=== PATIENT | male | born 1975 | race Caucasian/White ===

== ENCOUNTER 2020-03-30 06:06 | Emergency (ER) | payer SELFPAY ==
[2020-03-30 06:57] VITALS: BMI 22.7
[2020-03-30] MEDS ORDERED: ACETAMINOPHEN 325 MG TABLET (FP) PO ONE (07:57)
[2020-03-30 08:12] LABS: BASO % 0.5 % (0-2.0); EOS % 2.4 % (0-4.5); HEMATOCRIT 39.6 % (35.4-49); HEMOGLOBIN 13.8 GM/dL (11.7-16.9); LYMPH % 45.1 % (8-40); MCHC 34.8 g/dl (32.0-35.9); MEAN CELL VOLUME 94.9 fl (80-96); MEAN PLT VOLUME 7.6 fl (7.5-11.1); MONO % 9.4 % (3.8-10.2); NEUT % 42.6 % (42.8-82.8); PLATELET COUNT 208 K/MM3 (134-434); RBC 4.17 M/mm3 (4.00-5.60); RDW 13.3 % (11.9-15.9); WHITE BLOOD COUNT 6.7 K/mm3 (4.0-10.0)
[2020-03-30 08:40] LABS: CHLORIDE 107 mmol/L (98-107); POTASSIUM 3.6 mmol/L (3.5-5.1); SODIUM 138 mmol/L (136-145)
[2020-03-30 08:43] LABS: ALBUMIN 3.4 g/dl (3.4-5.0); ANION GAP 8 MMOL/L (8-16); BLOOD UREA NITROGEN 8.6 mg/dL (7-18); CALCIUM 8.1 mg/dL (8.5-10.1); CO2 23 mmol/L (21-32); GLUCOSE,RANDOM 113 mg/dL (74-106); MAGNESIUM 2.2 mg/dL (1.8-2.4)
[2020-03-30 08:46] LABS: CREATININE 0.6 mg/dL (0.55-1.3); PHOSPHOROUS 3.5 mg/dL (2.5-4.9); SGOT/AST 55 U/L (15-37); SGPT/ALT 62 U/L (13-61)
[2020-03-30 08:47] LABS: BILIRUBIN,TOTAL 0.4 mg/dL (0.2-1)
[2020-03-30 08:49] LABS: ALK PHOS 149 U/L (45-117)
[2020-03-30] MEDS ORDERED: ACETAMINOPHEN 325 MG TABLET (FP) ONE (08:55)
[2020-03-30 09:39] LABS: PLATELET ESTIMATE NORMAL
[2020-03-30 10:46] VITALS: BP 113/89; PULSE 77; TEMP 98
== END 2020-03-30 10:45 | disposition home or self-care (01) ==
LOC: JER 06:06
DX: R07.9 Chest pain, unspecified (principal)
CPT/HCPCS: 36415; 71046-TC-FY; 80053; 82550; 82553; 83735; 84100; 84484; 85025; 93005; 93010; 99285-25